=== PATIENT | male | born 1965 | race Asian ===

== ENCOUNTER 2018-06-20 21:30 | Emergency (ER) | payer BC ==
[~2018-06-20] VITALS: Ht 152.4 cm; Wt 68.9 kg
[2018-06-20 21:56] VITALS: BP 149/94
--- NOTE | 2018-06-20 23:45 | NUR ---
PT AMBULATED TO BED 03.
--- NOTE | 2018-06-20 23:49 | NUR ---
C/O PERSISTENT AND EXCESSIVE DIARRHEA X1 DAY. REPORTS THAT DRINKING ANY FLUIDS/FOOD BECOMES DIARRHEA. DENIES N/V; SKIN IS PINK/WARM/DRY; AAOX4 WITH EVEN AND STEADY GAIT; LUNGS CLEAR BL; HR EVEN AND REGULAR; PT DENIES ANY FEVER, CP, SOB, OR COUGH AT THIS TIME; PATIENT STATES PAIN OF 0/10 AT THIS TIME; VSS; PATIENT POSITIONED FOR COMFORT; HOB ELEVATED; BEDRAILS UP X2; BED DOWN. ER MD MADE AWARE OF PT STATUS.
[2018-06-21] MEDS ORDERED: NACL 0.9% 1,000 ML IV ONE (00:55)
--- NOTE | 2018-06-21 01:05 | NUR ---
IV STARTED; L AC 18G; FLUSHED WELL W/O RESISTANCE, NO REDNESS OR SWELLING NOTED, PT TOLERATED WELL.
[2018-06-21 01:35] LABS: BASOPHILS % (AUTO) 0.1 % (0.0-2.0); EOSINOPHILS % (AUTO) 0.1 % (0.0-4.0); LYMPHOCYTES # (AUTO) 1.2 K/uL (2.0-11.5); MONOCYTES # (AUTO) 0.9 K/uL (0.8-1.0)
[2018-06-21 01:42] LABS: HEMOGLOBIN 19.2 g/dL (12.0-18.0); MEAN CORPUSCULAR HEMOGLOBIN 29 pg (27-31); MEAN CORPUSCULAR HGB CONC 34 g/dL (33-37); MONOCYTES % (AUTO) 6.7 % (1.7-9.3); NEUTROPHILS # (AUTO) 10.8 K/uL (1.8-7.7); PLATELET COUNT (AUTO) 178 K/uL (140-450); RED BLOOD CELL COUNT(AUTO) 6.71 MIL/uL (4.20-6.10); RED CELL DISTRIBUTION WIDTH 13.7 % (11.6-13.7); WHITE BLOOD COUNT (AUTO) 12.9 K/uL (4.8-10.8)
[2018-06-21 01:50] LABS: NEUTROPHILS % (AUTO) 84.1 % (42.2-75.2)
[2018-06-21 02:03] LABS: ANION GAP 16.3 (8-16); CREATININE 1.4 mg/dL (0.7-1.3); POTASSIUM 3.3 mmol/L (3.5-5.1)
[2018-06-21 02:08] LABS: ALBUMIN 4.4 g/dL (3.4-5.0); TOTAL BILIRUBIN 0.6 mg/dL (0.0-1.0)
[2018-06-21 04:10] VITALS: BP 128/81
--- NOTE | 2018-06-21 04:10 | NUR ---
Patient discharged with v/s stable. Written and verbal after care instructions given and explained. Patient alert, oriented and verbalized understanding of instructions. Ambulatory with steady gait. All questions addressed prior to discharge. ID band removed. Patient advised to follow up with PMD. Rx of CIPRO, IMODIUM given. Patient educated on indication of medication including possible reaction and side effects. Opportunity to ask questions provided and answered.
== END 2018-06-21 04:10 | disposition home or self-care (01) ==
LOC: MED 21:30
DX: A09 Infectious gastroenteritis and colitis, unspecified (principal)
CPT/HCPCS: 36415; 80053; 85025; 99283; J7030

== ENCOUNTER 2018-06-23 14:20 | Emergency (ER) | payer BC ==
[~2018-06-23] VITALS: Ht 162.6 cm; Wt 67.1 kg
[2018-06-23 14:42] VITALS: BP 145/87
--- NOTE | 2018-06-23 14:48 | NUR ---
pt ambulated to er bed 10
--- NOTE | 2018-06-23 14:57 | NUR ---
PATIENT PRESENTS TO ED WITH C/O ABDOMINAL PAIN, CONTINUOUS WATERY/LOOSE STOOLS X 5 TODAY, WAS SEEN IN OUR ER 06/20/2018 DX GASTROENTERITIS RX CIPRO, IMODIUM. HX GERD AAOX4 WITH EVEN AND STEADY GAIT; LUNGS CLEAR BL; HR EVEN AND REGULAR; PT DENIES ANY FEVER, CP, SOB, OR COUGH AT THIS TIME; SKIN IS PINK/WARM/DRY; PATIENT STATES PAIN OF 10/10 AT THIS TIME; VSS; PATIENT POSITIONED FOR COMFORT; HOB ELEVATED; BEDRAILS UP X2; BED DOWN. ER MD MADE AWARE OF PT STATUS.
[2018-06-23] MEDS ORDERED: PANTOPRAZOLE 40 MG INJ VIAL IVP ONE (15:10)
[2018-06-23] MEDS ORDERED: NACL 0.9% 1,000 ML IV SCH (15:10)
[2018-06-23] MEDS ORDERED: DIPHENOXYLATE /ATROPINE 2.5 MG TAB PO ONE (15:10)
--- NOTE | 2018-06-23 15:10 | NUR ---
Patient being evaluated by physician at bedside.
[2018-06-23 15:43] LABS: BASOPHILS % (AUTO) 0.3 % (0.0-2.0); EOSINOPHILS # (AUTO) 0.1 K/uL (0-0.4); EOSINOPHILS % (AUTO) 1.2 % (0.0-4.0); HEMATOCRIT 52.2 % (36-52); HEMOGLOBIN 17.8 g/dL (12.0-18.0); LYMPHOCYTES # (AUTO) 1.8 K/uL (2.0-11.5); MEAN CORPUSCULAR HEMOGLOBIN 29 pg (27-31); MEAN CORPUSCULAR HGB CONC 34 g/dL (33-37); MONOCYTES # (AUTO) 0.6 K/uL (0.8-1.0); MONOCYTES % (AUTO) 12.9 % (1.7-9.3); NEUTROPHILS # (AUTO) 2.5 K/uL (1.8-7.7); NEUTROPHILS % (AUTO) 49.6 % (42.2-75.2); PLATELET COUNT (AUTO) 160 K/uL (140-450); RED BLOOD CELL COUNT(AUTO) 6.14 MIL/uL (4.20-6.10); RED CELL DISTRIBUTION WIDTH 13.4 % (11.6-13.7)
[2018-06-23 15:49] LABS: APPEARANCE,URINE CLEAR (CLEAR); BILIRUBIN,URINE NEGATIVE (NEGATIVE); BLOOD, URINE TRACE-I (NEGATIVE); COLOR,URINE YELLOW (YELLOW); LEUKOCYTE ESTERASE ,URINE NEGATIVE (NEGATIVE); NITRITE, URINE NEGATIVE (NEGATIVE); UGLUCOSE NEGATIVE (NEGATIVE)
--- NOTE | 2018-06-23 16:00 | NUR ---
PT'S FAMILY REQUESTED FOR CT SCAN FOR ABDOMEN, ED MD MADE AWARE, WILL SPEAK TO FAMILY.
[2018-06-23] MEDS ORDERED: ONDANSETRON 4 MG/2 ML VIAL IVP ONE (16:05)
[2018-06-23] MEDS ORDERED: MORPHINE SULFATE 4 MG/ML SYR IVP ONE (16:05)
[2018-06-23 16:10] LABS: CARBON DIOXIDE 28.2 mmol/L (21-32); CREATININE 1.3 mg/dL (0.7-1.3); POTASSIUM 3.2 mmol/L (3.5-5.1)
[2018-06-23 16:14] LABS: WBC,URINE 0-5 /HPF (0-5)
[2018-06-23 16:16] LABS: ALBUMIN 3.5 g/dL (3.4-5.0); TOTAL BILIRUBIN 0.7 mg/dL (0.0-1.0)
--- NOTE | 2018-06-23 16:30 | NUR ---
PT IS RESTING IN BED, NO S/S OF DISTRESS, STATED GETTING OLMAN, 3/ AT THIS TIME.
[2018-06-23 17:35] VITALS: BP 132/78
--- NOTE | 2018-06-23 17:35 | NUR ---
Patient discharged with v/s stable. Written and verbal after care instructions given and explained. Patient alert, oriented and verbalized understanding of instructions. Ambulatory with steady gait. All questions addressed prior to discharge. ID band removed. Patient advised to follow up with PMD. Rx of MYLANTA, LOMOTIL, OMEPRAZOLE, ZOFRAN given. Patient educated on indication of medication including possible reaction and side effects. Opportunity to ask questions provided and answered.
== END 2018-06-23 17:35 | disposition home or self-care (01) ==
LOC: MED 14:20
DX: R19.7 Diarrhea, unspecified (principal); K21.9 Gastro-esophageal reflux disease without esophagitis
CPT/HCPCS: 36415; 80053; 81001; 83690; 85025; 96361; 96374; 96375; 99283; C9113; J2270; J2405; J7030